=== PATIENT | female | born 1965 ===

== ENCOUNTER → 2023-12-19 17:30 | Outpatient (REF) | payer OTHER, SELFPAY | LOC: RCS 17:30 | PROVIDERS: ATTENDING PHYSICIAN Internal Medicine Critical Care Medicine | DX: R06.02 Shortness of breath (principal) | CPT/HCPCS: 93306 ==

== ENCOUNTER 2024-05-15 06:18 | Day surgery (SDC) | payer BC, SELFPAY | END 2024-05-15 12:53 | disposition home or self-care (01) | LOC: GI 06:18 | PROVIDERS: ATTENDING PHYSICIAN Internal Medicine; FAMILY PHYSICIAN Family Medicine | DX: Z12.11 Encounter for screening for malignant neoplasm of colon (principal); K63.5 Polyp of colon; R12 Heartburn | CPT/HCPCS: 45380; 43239; 88305; 88342 ==